=== PATIENT | female | born 1975 | race Caucasian/White ===

== ENCOUNTER 2017-02-02 14:47 | Outpatient (CLI) | payer OTHER | END 2017-02-02 14:48 | disposition home or self-care (01) | DX: N92.4 Excessive bleeding in the premenopausal period (principal); N91.2 Amenorrhea, unspecified ==

== ENCOUNTER 2017-02-08 15:40 | Outpatient (CLI) | payer OTHER ==
--- NOTE | 2017-02-09 12:10 | Ultrasound Report ---
PELVIC ULTRASOUND: 02/08/2017 CLINICAL INDICATION: Menorrhagia. TECHNIQUE: Transabdominal pelvic ultrasound performed for global evaluation. Transvaginal pelvic ul trasound performed for detailed evaluation. Real-time scanning performed and static images obtained. FINDINGS: The uterus is anteverted, measuring 8.0 x 5.0 x 2.8 cm. The endometrial echo complex thaddeus ures 5 mm. There is a hypoechoic 3.5 x 3.2 x 1.7 cm pedunculated fibroid adjacent to the fundus. Th e right ovary measures 2.5 x 2.0 x 1.7 cm, and contains a 1.5 cm hemorrhagic cyst. The left ovary me asures 2.2 x 1.5 x 1.4 cm, and appears unremarkable. No free fluid is present. IMPRESSION: PEDUNCULATED FUNDAL FIBROID. SMALL HEMORRHAGIC CYST IN THE RIGHT OVARY. NO EVIDENCE OF ENDOMETRIAL LESION. JOB #: [id number] EXT JOB #:[id number]
== END 2017-02-08 15:41 | disposition home or self-care (01) ==
LOC: DI 15:40
PROVIDERS: ATTEND Physician Assistant Medical
DX: D25.9 Leiomyoma of uterus, unspecified (principal); N83.201 Unspecified ovarian cyst, right side
CPT/HCPCS: 76830; 76856

== ENCOUNTER 2017-06-19 18:43 | Emergency (ER) | payer OTHER ==
--- NOTE | 2017-06-19 19:23 | ED Physician Documentation ---
PD HPI LOWER EXT INJURY - Stated complaint Stated Complaint: RT FOOT INJ - Chief complaint Chief Complaint: Trauma Ext - History obtained from History obtained from: Patient - History of Present Illness PD HPI LOW EXT INJURY LOCATION: Right Type of injury: Fall, Twist Where injury occurred: Street Timing - onset: Other (2 days ago) Timing - details: Abrupt onset Improved by: Rest Worsened by: Moving Review of Systems Constitutional: reports: Reviewed and negative Throat: reports: Reviewed and negative Respiratory: reports: Reviewed and negative PD ED PE NORMAL - Vitals Vital signs reviewed: Yes - General General: Alert and oriented X 3, No acute distress - Extremities Extremities: Other (Tender over lat malleolus of the right ankle. with ecchymosis lateral heel.) - Neuro Neuro: Alert and oriented X 3, Normal speech - Psych Psych: Normal mood, Normal affect Results - Vitals Vitals: Vital Signs - 24 hr 06/19/17 18:59 Temperature 36.4 C L Heart Rate 70 Respiratory 16 Rate Blood Pressure 134/82 H O2 Saturation 99 Oxygen O2 Source Room air Departure - Departure Disposition: Home, Self Care Clinical Impression: Right ankle sprain Qualifiers: Encounter type: initial encounter Involved ligament of ankle: anterior talofibular ligament Qualified Code(s): S93.491A - Sprain of other ligament of right ankle, initial encounter Condition: Good Record reviewed to determine appropriate education?: Yes Instructions: ED Sprain Ankle W X Ray Comments: Recheck with your physician if not improving in 1 week. Return if worse. Tylenol or ibuprofen per package instructions for pain, ice it and keep the gel cast on while walking until better. Your blood pressure was elevated today on check into the emergency department. This does not mean that you have hypertension, it is a common phenomenon to come to the emergency department and have elevated blood pressure. I recommend that she see your primary care physician within the week to have it rechecked when you are feeling better.
--- NOTE | 2017-06-19 19:57 | XRAY Preliminary Report ---
Exam: XR ANKLE 3 VIEW RT IMPRESSION: Normal ankle radiography. [facility] SITE ID: [id number]
--- NOTE | 2017-06-19 19:59 | XRAY Report ---
EXAM: RIGHT ANKLE RADIOGRAPHY EXAM DATE: 06/19/2017 07:46 PM. CLINICAL HISTORY: Pain since ankle injury Monday. COMPARISON: None. TECHNIQUE: 3 views. FINDINGS: Bones: Normal. No fractures or bone lesions. Joints: Normal. No effusion. No subluxations. The ankle mortise is normally aligned. Soft Tissues: Normal. No soft tissue swelling. IMPRESSION: Normal ankle radiography. [facility] Referring Provider Line: [phone] SITE ID: [id number]
[2017-06-19 20:05] VITALS: BP 114/72
== END 2017-06-19 20:04 | disposition home or self-care (01) ==
LOC: ED 18:43
DX: S93.491A Sprain of other ligament of right ankle, initial encounter (principal); X50.1XXA Overexertion from prolonged static or awkward postures, initial encounter; W18.30XA Fall on same level, unspecified, initial encounter; Y93.01 Activity, walking, marching and hiking; Y92.410 Unspecified street and highway as the place of occurrence of the external cause; R03.0 Elevated blood-pressure reading, without diagnosis of hypertension
CPT/HCPCS: 99282; 99283

== ENCOUNTER 2017-07-17 07:49 | Outpatient (CLI) | payer OTHER ==
--- NOTE | 2017-07-17 09:17 | MRI Report ---
EXAM: RIGHT ANKLE/HINDFOOT MRI WITHOUT CONTRAST EXAM DATE: 07/17/2017 08:37 AM. CLINICAL HISTORY: Twisted/rolled right ankle in June 2017. COMPARISON: X-ray 06/21/2017. TECHNIQUE: Multiplanar, multisequence T1-weighted and fluid-sensitive sequences of the ankle/hindfoot without contrast. Other: None. FINDINGS: Bones: There is a low T1, low T2 signal line underlying but parallel to the subchondral bone of the a nterior margin of the tibial plafond. There is marked surrounding edema. The findings are consistent with a nondisplaced subchondral fracture. There are no other foci of marrow edema. There is a focal defect in the dorsal aspect of the talar he ad, and edema of the dorsal aspect of the talar neck. The findings suggest kissing contusions with th e anterior margin of the tibial plafond. Articular Cartilage: The hyaline cartilage in this region cannot be clearly visualized. An osteochond ral injury cannot be excluded. The remainder of the talar dome and tibial plafond appear normal. Ligaments: The anterior and posterior tibiofibular ligaments are intact. There is a complete rupture of the anterior talofibular ligament. The capsule bulges anteriorly. The calcaneofibular and posteri or talofibular ligaments are intact. Medial collateral ligament complex appears normal. Anterior Tendons: The tibialis anterior, extensor hallucis longus, and extensor digitorum longus tend ons are unremarkable. Medial Tendons: The tibialis posterior, flexor digitorum longus, and flexor hallucis longus tendons a re unremarkable. Lateral Tendons: There is longitudinal splitting of the peroneus brevis from its distal insertion, ex tending proximally, to the posterior aspect of the lateral malleolus. The peroneus longus is intact. Achilles Tendon: The Achilles tendon is unremarkable. Musculature: No edema or fatty atrophy. Other: There is a small ankle joint effusion. The contents of the sinus tarsi and tarsal tunnel are u nremarkable. No plantar fasciitis. The subcutaneous tissues are unremarkable. IMPRESSION: 1. Subchondral fracture of the anterior margin of the tibial plafond. Accompanying joint effusion. 2. Complete rupture of the anterior talofibular ligament. 3. Longitudinal splitting of the peroneus brevis. 4. Prior contusions of the talar head and neck, most likely related to the fracture of the tibial ten fond. [facility] MUSCULOSKELETAL RADIOLOGY SECTION Referring Provider Line: [phone] SITE ID: [id number]
== END 2017-07-17 07:50 | disposition home or self-care (01) ==
LOC: DI 07:49
PROVIDERS: ATTEND Nurse Practitioner Primary Care
DX: S82.871A Displaced pilon fracture of right tibia, initial encounter for closed fracture (principal); S93.491A Sprain of other ligament of right ankle, initial encounter; M25.471 Effusion, right ankle

== ENCOUNTER 2017-09-26 07:02 | Outpatient (CLI) | payer OTHER ==
--- NOTE | 2017-09-27 17:36 | Mammography Report ---
DATE OF SERVICE: 09/26/2017 DIGITAL SCREENING MAMMOGRAM: 09/26/2017 CLINICAL INDICATION: A 42-year-old with history of late childbearing, for screening. COMPARISON: 10/2014. TECHNIQUE: Routine CC and MLO projections were obtained of the breasts. Bilateral laterally exaggerated craniocaudal views. FINDINGS: The breasts demonstrate heterogeneously dense fibroglandular parenchyma bilaterally. Intramammary lymph nodes are stable. No suspicious masses, clustered microcalcifications, or regions of architectural distortion are identified. IMPRESSION: BENIGN FINDINGS. RECOMMENDATION: ROUTINE ANNUAL SCREENING UNLESS OTHERWISE CLINICALLY INDICATED. BIRADS CATEGORY 2-BENIGN FINDINGS. STANDARD QUALIFYING STATEMENTS: 1. This examination was reviewed with the aid of Computer-Aided Detection (CAD). 2. A negative or benign imaging report should not delay biopsy if clinically suspicious findings are present. Consider surgical consultation if warranted. More than 5% of cancers are not identified by imaging. 3. Dense breasts may obscure an underlying neoplasm. TD: 09/27/2017 18:35
== END 2017-09-26 07:03 | disposition home or self-care (01) ==
LOC: DI 07:02
PROVIDERS: ATTEND Physician Assistant Medical
DX: Z12.31 Encounter for screening mammogram for malignant neoplasm of breast (principal)
CPT/HCPCS: 77067

== ENCOUNTER 2018-05-08 17:35 | Outpatient (CLI) | payer OTHER ==
--- NOTE | 2018-05-09 17:35 | XRAY Report ---
Reason: REACTIVE AIRWAY DISEASE Procedure Date: 05/08/2018 Accession Number: [id number] / [id number] Procedure: XR - Chest 2 View X-Ray CPT Code: 78289 FULL RESULT: EXAM: CHEST RADIOGRAPHY. EXAM DATE: 05/08/2018 05:50 PM. CLINICAL HISTORY: Reactive airway disease. Chronic dry cough. COMPARISON: None. TECHNIQUE: 2 views. FINDINGS: Lungs/Pleura: No focal opacities evident with exception of probable mild left lung base scarring. No pleural effusion. No pneumothorax. Normal volumes. Mediastinum: Heart and mediastinal contours are unremarkable. Other: Old left rib fracture. IMPRESSION: No acute process seen in the chest. [facility]
== END 2018-05-08 17:36 | disposition home or self-care (01) ==
LOC: DI 17:35
PROVIDERS: ATTEND Physician Assistant Medical
DX: J45.909 Unspecified asthma, uncomplicated (principal)
CPT/HCPCS: 71046

== ENCOUNTER 2020-06-01 16:10 | Outpatient (CLI) | payer BC ==
--- NOTE | 2020-06-01 16:45 | XRAY Report ---
PROCEDURE: Wrist 3 View LT INDICATIONS: LT WRIST PAIN TECHNIQUE: 4 views of the wrist were acquired. COMPARISON: None FINDINGS: Bones: No fractures or dislocations. No suspicious bony lesions. Scaphoid view: No visualized fracture. Soft tissues: No suspicious soft tissue calcifications. IMPRESSION: No visualized acute fracture or dislocation. However, occult injury cannot be excluded. Recommend maria r rt interval imaging follow-up in 7-10 days as clinically indicated for additional evaluation. Reviewed by: Mariella Hall MD on 06/01/2020 4:43 PM PDT Approved by: Mariella Hall MD on 06/01/2020 4:43 PM PDT Station ID: [id number]
== END 2020-06-01 16:11 | disposition home or self-care (01) ==
LOC: DI 16:10
PROVIDERS: ATTEND Registered Nurse
DX: Z00.00 Encounter for general adult medical examination without abnormal findings (principal); M25.532 Pain in left wrist

== ENCOUNTER 2020-07-19 11:23 | Outpatient (CLI) | payer BC ==
--- NOTE | 2020-07-20 14:05 | Mammography Report ---
BILATERAL DIGITAL SCREENING MAMMOGRAM 3D/2D: 07/19/2020 CLINICAL: Routine screening. Family history of breast cancer. Comparison is made to exams dated: 09/26/2017 mammogram and 10/13/2014 mammogram - [facility]. The tissue of both breasts is heterogeneously dense. This may lower the sensitivity of flo mography. There is a 5 mm x 8 cm x 5 cm oval equal density focal asymmetry with an indistinct margin in the lef t breast at 12 o'clock middle depth 3.5 cm from the nipple. No other significant masses, calcifications, or other findings are seen in either breast. IMPRESSION: INCOMPLETE: NEEDS ADDITIONAL IMAGING EVALUATION The 5 mm x 8 cm x 5 cm oval equal density focal asymmetry in the left breast is indeterminate. A parvin gnostic mammogram and ultrasound is recommended. This exam was interpreted at Station ID: [id number]. NOTE: For mammograms, a report in lay terms will be sent to the patient. Approximately 15% of breast malignancies will not be visualized mammographically. In the management of a palpable breast mass, a negative mammogram must not discourage biopsy of a clinically suspicious lesion. Electronically Signed By: Edgar Bui acr/:07/19/2020 17:37:50 ACR BI-RADS Category 0: Incomplete 3340F PARENCHYMAL PATTERN: (D) - The breast(s) demonstrate(s) heterogeneously dense fibroglandular parenchy ma. BI-RADS CATEGORY: (0) - 0 Mammo and US [id number] Immediate follow-up LATERALITY: (B)
== END 2020-07-19 11:24 | disposition home or self-care (01) ==
LOC: DI 11:23
PROVIDERS: ATTEND Registered Nurse
DX: Z12.31 Encounter for screening mammogram for malignant neoplasm of breast (principal); Z00.00 Encounter for general adult medical examination without abnormal findings; R92.8 Other abnormal and inconclusive findings on diagnostic imaging of breast
CPT/HCPCS: 77063; 77067

== ENCOUNTER 2020-09-11 08:17 | Outpatient (CLI) | payer BC ==
[2020-09-11] MEDS ORDERED: BUPIVACAINE 0.5% PF 10 ML VIAL ONE ×2 (08:37→10:45)
[2020-09-11] MEDS ORDERED: BUFFERED LIDOCAINE 10 ML SYRINGE ONE (08:38)
[2020-09-11] MEDS ORDERED: BUFFERED LIDOCAINE 10 ML SYRINGE IU ONE (10:30)
[2020-09-11] MEDS ORDERED: BUPIVACAINE 0.5% PF 10 ML VIAL IU ONE (10:36)
--- NOTE | 2020-09-14 08:45 | Mammography Report ---
UNILATERAL LEFT DIGITAL DIAGNOSTIC MAMMOGRAM 3D/2D: 09/11/2020 CLINICAL: Post left breast ultrasound biopsy, clip placment imaging. Comparison is made to exams dated: 09/11/2020 ultrasound biopsy - [facility], 2019 ultrasound, 08/20/2020 mammogram - [facility], and 07/19/2020 mammogram - [facility]. The tissue of left breast is heterogeneously dense. This may lower the sensitivity of m ammography. Expected position of post biopsy marker. IMPRESSION: POST PROCEDURE MAMMOGRAM FOR MARKER PLACEMENT Biopsy site marker is in expected position. This exam was interpreted at Station ID: [id number]. NOTE: For mammograms, a report in lay terms will be sent to the patient. Approximately 15% of breast malignancies will not be visualized mammographically. In the management of a palpable breast mass, a negative mammogram must not discourage biopsy of a clinically suspicious lesion. Electronically Signed By: Bradly Pinto M.D. sdh/:09/11/2020 16:04:04 ACR BI-RADS Category Post-procedure mammogram for marker placement PARENCHYMAL PATTERN: (D) - The breast(s) demonstrate(s) heterogeneously dense fibroglandular parkelleny ma. BI-RADS CATEGORY: () - Unspecified - other recall n/a LATERALITY: (B)
--- OUTSIDE RECORDS SUMMARY | 2020-09-16 01:28 | EXTERNAL MEDICAL SUMMARY RPT | Continuity of Care Document ---
:1975 Demographics Phone Unavailable Preferred Language Khmer Marital Status Unknown Adventist Affiliation Unknown Race Unknown Ethnic Group Unknown Author Organization [facility] Address [address] [place] [address] Phone Care Team Providers Name Role Phone Natalya SUAREZ, Unavailable Unavailable Natalya Pagan Unavailable Unavailable Problems date description facility 2020-06-30 13:45 [address] MAMMOGRAM FOR [facility] MALIGNANT NEOPLASM OF BREAST 2020-07-16 16:15 [address] MAMMOGRAM FOR [facility] MALIGNANT NEOPLASM OF BREAST 2020-07-19 11:23 [address] MAMMOGRAM FOR [facility] MALIGNANT NEOPLASM OF BREAST 2020-07-19 11:[address] MAMMOGRAM FOR [facility] MALIGNANT NEOPLASM OF BREAST 2020-07-20 00:00:00 Abnormal mammogram, [facility] Care unspecified [facility] 2020-07-20 00:00:00 US BREAST-LIMITED/FOCUSED [facility] 2020-07-20 00:00:00 MM DIAG [facility]IGIT [facility]AMMO [facility] 2020-07-20 [facility]:00:00 Other abnormal and [facility] inconclusive findings on [facility] diagnostic imaging of breast 2020-07-20 00:00:00 [facility] 2020-07-24 08:11 PAIN IN LEFT WRIST [facility] 2020-07-24 08:15 PAIN IN LEFT WRIST [facility] [place] 2020-08-07 08:30 PAIN IN LEFT WRIST [facility] [place] 2020-08-14 08:30 PAIN IN LEFT WRIST [facility] [place] 2020-08-21 00:00:00 FNA BX w[facility] GND [facility] 2020-08-22 00:00:00 US BX BREAST CORE [facility] harvey [facility] 2020-08-22 00:00:00 MM DIAG DIGIT MAMMO U/L [facility] Primary [facility] 2020-08-26 15:45 PAIN IN LEFT WRIST [facility] Medic [facility] Center 2020-09-11 08:17 OTH ABN AND INCONCLUSIVE [facility] FINDINGS ON DX IMAGING OF BREAST 2020-09-11 08:30 OTH ABN AND INCONCLUSIVE [facility] FINDINGS ON DX IMAGING OF BREAST Allergies date description facility [facility]AMATE [facility] LEVOTHYROXINE SODIUM [facility] Med ical Center NO KNOWN ENVIRONMENTAL ALLERGIES [facility] LACTOSE [facility] ATORVASTATIN [facility] CLINDAMYCIN [facility] CODEINE [facility] GABAPENTIN [facility] LISINOPRIL [facility] Center MERCURY (BULK) [facility] Medic [facility] Center MERCURY,AMMONIATED [facility] Center MOLD [facility] PENICILLINS [facility] Medic [facility] Center SULFA (SULFONAMIDE ANTIBIOTICS) [facility] NO KNOWN FOOD ALLERGIES [facility] NO ALLERGY INFORMATION AVAILABLE [facility] PENICILLINS [facility] Medic [facility] Center CEPHALOSPORINS [facility] Medic [facility] Center SULFA (SULFONAMIDE ANTIBIOTICS) [facility] HYDROXYZINE [facility] Medic [facility] Center L[facility]ZEPAM [facility] MORPHINE [facility] CODEINE [facility] PENTOXIFYLLINE [facility] Medic [facility] Center CEFUROXIME AXETIL [facility] DOXYCYCLINE [facility] SULFAMETHOXAZOLE [facility] Medic [facility] Center TRIMETHOPRIM [facility] PROCAINE [facility] MEPERIDINE [facility] Center ONDANSETRON [facility] Medic [facility] Center KETOROLAC [facility] Medic [facility] Center BEE VENOM PROTEIN (HONEY BEE) [facility] OXYCODONE-ACETAMINOPHEN [facility] OXYCODONE-ASPIRIN [facility] Medic al Center PNEUMOCOCCAL 23-ANNA PS VACCINE [facility] ADHESIVE TAPE-SILICONES [facility] Procedures date description facility 2020-07-20 00:00:00 US BREAST-LIMITED/FOCUSED [facility] date description facility 2020-07-20 00:00:00 MM DIAG DIGIT MAMMO U/L [facility] date description facility 2020-07-20 00:00:00 [facility] date description facility 2020-08-21 00:00:00 FNA BX w/US GND 1ST LES [facility] Primary [facility] date description facility 2020-08-21 00:00:00 [facility] date description facility 2020-08-22 00:00:00 MM DIAG DIGIT MAMMO U/L [facility] date description facility 2020-08-22 00:00:00 [facility] Social History date description facility [id number]
--- NOTE | 2020-09-16 07:06 | Ultrasound Report ---
ULTRASOUND GUIDED BIOPSY LEFT BREAST USING VACUUM DEVICE WITH MARKING DEVICE INSERTED AND POST MAMMOG RAPHIC AND ULTRASOUND IMAGIN09/11/2020 CLINICAL: Abn mammo left breast. PATIENT CONSENT: Risks (minor bleeding, infection, vasovagal reaction and repeat procedure), benefits and alternatives were explained to the patient and written informed consent was obtained. Correlation is made to exams dated: 08/20/2020 ultrasound and 08/20/2020 mammogram - [facility] . An ultrasound guided biopsy using real-time ultrasound was performed for the concerning 0.6 cm x 0.4 cm x 0.3 cm circumscribed oval solid mass located in the left breast at 12 o'clock middle depth 3.5 c m from the nipple. The skin was prepped in the usual manner. Local anesthetic was administered to the access site. A s kin carmen was made in the breast. The abnormality was approached from the lateral aspect. A 10 gauge biopsy needle was placed adjacent to the abnormality under ultrasound guidance. Once the needle was documented to be in the correct location, five specimens were obtained using the Mammotome biopsy sy stem. The patient received additional local anesthetic during the procedure. A mammo clip was inser paramjit into the biopsy cavity. A skin closure strip and a sterile dressing were applied to the access s ite. Post procedure mammographic and ultrasound imaging demonstrates the location device at the targ eted area and partial removal of the abnormality. The specimens were sent to the laboratory for path ological analysis. IMPRESSION: ULTRASOUND GUIDED BIOPSY BENIGN Ultrasound guided biopsy of the 0.6 cm x 0.4 cm x 0.3 cm solid mass in the left breast at 12 o'clock middle depth was successful. Pathology indicates benign fibroadenoma (FA). Pathology results are concordant with imaging findings . Return to annual mammogram screening schedule is recommended. This exam was interpreted at Station ID: [id number]. Bradly Cobb M.D. [facility]/:09/15/2020 17:39:51 BI-RADS CATEGORY: () - Mammogram [id number] return to screening LATERALITY: (B)
== END 2020-09-11 08:18 | disposition home or self-care (01) ==
LOC: DI 08:17
PROVIDERS: ATTEND Registered Nurse
DX: D24.2 Benign neoplasm of left breast (principal)
CPT/HCPCS: 19083